=== PATIENT | male | born 1955 | race Caucasian/White ===

== ENCOUNTER → 2017-02-12 | Outpatient (CLI) | payer BC ==
--- NOTE | 2017-02-12 16:17 | DIAGNOSTIC IMAGING REPORT ---
L-SPINE MIN 4 VIEWS ROUTINE CLINICAL HISTORY: 61 years-old Male presenting with RADICULOPATHY LUMBAR REGION. TECHNIQUE: Frontal, bilateral oblique, and lateral views of the lumbar spine as well as coned-down lateral view of the lumbosacral junction were obtained. COMPARISON: None. FINDINGS: Osteopenia. Vertebral bodies maintain normal height and alignment. Intervertebral disc height loss at L5-S1 with osteophytosis and degenerative related gas in the disc. No significant osseous neural foraminal narrowing at this level results. The remaining levels are also unremarkable. Atherosclerosis. Nonobstructive bowel gas pattern. IMPRESSION: 1. Focal degenerative change at L5-S1 without radiographically apparent osseous neural foraminal narrowing. Electronically signed by: Tevin Silva M.D. 02/12/2017 4:15 PM Dictated Date/Time: 02/12/2017 4:13 PM
== END | disposition home or self-care (01) ==
LOC: C.RAD1850 15:50
PROVIDERS: ATTEND Family Medicine
DX: M51.26 Other intervertebral disc displacement, lumbar region (principal); M47.27 Other spondylosis with radiculopathy, lumbosacral region